=== PATIENT | female | born 1975 | race Caucasian/White ===

== ENCOUNTER 2018-08-28 17:22 | Emergency (ER) | payer MEDICAID ==
[~2018-08-28] VITALS: Ht 170.2 cm; Wt 113.6 kg
[2018-08-28 17:30] VITALS: Ht 170.2 cm; Wt 113.6 kg
[2018-08-28] MEDS ORDERED: ROBAXIN500 MG PO (18:37)
[2018-08-28] MEDS ORDERED: VOLTAREN75 MG PO (18:37)
[2018-08-28 19:46] VITALS: BP 135/81
== END 2018-08-28 19:45 | disposition home or self-care (01) ==
LOC: D.ER 17:22
DX: R07.81 Pleurodynia (principal); M79.18 Myalgia, other site; F17.200 Nicotine dependence, unspecified, uncomplicated